=== PATIENT | male | born 1985 | race Caucasian/White ===

== ENCOUNTER → 2018-07-13 | Outpatient (CLI) | payer OTHER ==
[~2018-07-13] MED LIST: [UNRECOGNIZED DRUG - REMARK]
--- NOTE | 2018-07-13 21:49 | PAIN ---
DATE OF SERVICE: 07/13/2018 INITIAL CONSULTATION FOR PAIN CLINIC CHIEF COMPLAINT: Right knee pain. HISTORY OF PRESENT ILLNESS: This is a 32-year-old male who presents with history of pain in the right knee for about 20+ years by his report, had an accident at that time, had reconstructive surgery of the right knee as well as the left ankle, but left ankle he reports is only minimally painful. His main complaint is right knee pain. The patient reports it is getting worse with weightbearing, better with sitting or getting all the pressure off of this leg, but does bother him with driving a car also. The patient reports the pain is in the right knee, mostly in the anterior medial superior aspect of the right knee. The patient reports it is constant, sharp, stabbing, throbbing, shooting, radiation to the medial leg, at times lower leg, some tingling, changes during the day, worse with walking, standing, intermittent in intensity, though if he can get the weight off of it, it is not as painful. The patient reports it awakens him from sleep at night frequently 4-6 times, does not affect his bowel or bladder control, does affect his ability to walk. He is not using any assistive devices to ambulate other than a knee brace. No canes or crutches or other items to help assist his walking. The patient reports he has had physical therapy, he does exercise and currently does this as well. The patient reports he did take some hydrocodone last summer, which helped significantly, but has not taken any since that time. The patient is using marijuana 3 times a day, which he reports does decrease the pain to a moderate extent as well. The patient rates his disability rating from 0-10, 10 being the worst, is a 4 with family and home responsibilities, occupation; 7 with recreational activity; 6 with sexual behavior; 3 with social activity and self-care, and 2 with life support activities. The patient reports he is currently on disability for the current pain-related issue. As noted, the patient has had no diagnostic studies at this time for his knee. No x-rays, no MRIs, has had no specialist referral to Orthopedics regarding his knee or his left ankle at this time. PAST MEDICAL HISTORY: Significant for smoking, atrophy of the right leg and skin cancers, also warts. PREVIOUS SURGERY: Include right knee surgery and reconstruction, the left ankle surgery and reconstruction, and wisdom teeth extraction in the past. ALLERGIES: THE PATIENT IS ALLERGIC TO PENICILLIN. CURRENT MEDICATIONS: Include albuterol inhaler. FAMILY HISTORY: Significant for no known conditions or diseases that he is aware of. SOCIAL HISTORY: The patient does not drink alcohol, does smoke marijuana up to 3 times daily, is single, lives in [place], and reports he is currently on disability related to the current pain issue from injury 20 years ago. REVIEW OF SYSTEMS: The patient's review of systems is positive for those items mentioned in history of present illness. All systems reviewed and otherwise negative. It is complete, full, well documented on the patient's chart. PHYSICAL EXAMINATION: VITAL SIGNS: The patient's blood pressure 120/92, pulse 61, respirations 16, temperature 98.2 degrees Fahrenheit. Height is 70 inches, weight is 178 pounds. GENERAL: The patient is awake, alert, oriented, appropriate, very pleasant demeanor. HEENT: Shows normocephalic, atraumatic. Extraocular movements are intact and symmetrical. Oral cavity: Mucous membranes moist and pink. Dentition is intact. NECK: Shows anterior throat supple without palpable lymphadenopathy noted. Swallow reflex is symmetrical. CHEST: Shows normal with inspection, but the skin shows some ingrown hairs over the sternum and some areas of what appeared to be acne, which are erythematous and tender to touch, but without drainage, without any significant erythema. Breath sounds are clear to auscultation bilaterally. HEART: Shows S1, S2 clear. No murmurs auscultated. ABDOMEN: Soft, nontender, nondistended. No palpable organomegaly is noted. No rebound or guarding demonstrated. BACK: Shows spine grossly in midline, normal-appearing cervical lordotic curvature, thoracic kyphotic curvature and lumbar lordotic curvature. The patient shows good rotational motion of both the cervical spine as well as the lumbar spine without difficulty, both right and left lateral extension and flexion without pain reported. EXTREMITIES: The patient's lower extremities show deep tendon reflexes 1+ in the patellar and tendo calcaneus tendons are equal. Motor exam is strong with 5/5 dorsiflexion on the left, approximately 4/5 on the right with quadriceps and hamstring flexion with 5/5 quadriceps and hamstring flexion on the left. The patient's right knee shows some atrophy compared to the left in the distal aspect of the quadriceps, especially on the medial aspect. With palpation shows some moderate tenderness in the superior medial aspect of the patella itself, although the patella is mobile with some moderate pain on the medial aspect of the right knee. The lateral aspect is nontender. No tenderness over the popliteal fossa. The patient's popliteal pulses 2+ and strong bilaterally. No peripheral edema is noted in the lower extremities. The patient has good rotation of the hinge function of the right knee joint, but only painful with weightbearing. The patient is able to stand and has a slight limp, appears to favor his right lower extremity secondary to knee pain. SKIN: Shows warm and dry, good turgor. No edema, rash or bruising, but sores on the chest as noted. IMPRESSION: This is a 32-year-old male with: 1. Long history of right knee pain as well as left ankle pain secondary to injury and surgical reconstruction. 2. No orthopedic evaluation, no diagnostic studies performed, and no further evaluation from other specialists regarding his right knee condition. 3. Use of marijuana. PLAN: Options were discussed with the patient including conservative medical managements, interventional techniques and continued physical therapies. The patient reports he has been through many physical therapies in the past and is interested in pursuing an orthopedic consultation. At this point, patient asked for hydrocodone and reports that "this is the only reason that I am here." I discussed that we would not be supplying him with any controlled substances as this was not the correct direction to take the management for his right knee pain and again referred him to an orthopedics nurse. The patient became irate at this time and was abusive to the nursing staff as well as supporting staff in the clinic and patient continued to state that he should be given special consideration seeing as how he was on a social security disability status. I discussed calmly with him that this would not make a difference in our clinic policy or how his treatment would be guided regardless of his coverage. The patient at this time left without any further communication. MESHA CALLAHAN MD DR: [email or web address]/charlene JOB#: [id number] / [id number] GARY Castano MD [facility]
== END | disposition home or self-care (01) ==
LOC: PNCL 10:48
PROVIDERS: ATTEND Anesthesiology
DX: M25.561 Pain in right knee (principal); M25.572 Pain in left ankle and joints of left foot; Z88.0 Allergy status to penicillin; Z79.899 Other long term (current) drug therapy; Z87.891 Personal history of nicotine dependence; Z85.828 Personal history of other malignant neoplasm of skin
CPT/HCPCS: G0463